=== PATIENT | female | born 1995 | race Caucasian/White ===

== ENCOUNTER 2017-07-25 09:00 | Emergency (ER) | payer OTHER ==
[2017-07-25 09:14] VITALS: BP 132/83; PULSE 83; TEMP 98.2; BMI 29.4
--- NOTE | 2017-07-25 09:39 | PDOC ---
History of Present Illness - General Chief Complaint: Abscess Boil Stated Complaint: LUMP ON BREAST Time Seen by Provider: 07/25/17 09:21 History Source: Patient Exam Limitations: No Limitations - History of Present Illness Initial Comments: 07/25/17 09:46 Patient is a [21-year-old female, denies any significant medical history currently on no medication. Presents for abscess to chest wall, right breast medial border. Not involving breast tissue. No fever, history of abscesses to inner thighs, current one to left inner thigh. No fever, pain 8/10. ] Past Medical History: [Denies]. Allergies: No known allergies Medications: [None] Family History: Non-contributory Social History: Denies smoking, alcohol use, or IVDU Review of Systems GENERAL/CONSTITUTIONAL: [No fever or chills. No weakness. No weight change.] HEAD, EYES, EARS, NOSE AND THROAT: [No change in vision. No ear pain or discharge. No sore throat. ] CARDIOVASCULAR: [No chest pain or shortness of breath.] RESPIRATORY: [No cough, wheezing, or hemoptysis.] GASTROINTESTINAL: [No nausea, vomiting, diarrhea or constipation. No rectal bleeding.] GENITOURINARY: [No dysuria, frequency, or change in urination.] MUSCULOSKELETAL: [No joint or muscle swelling or pain. No neck or back pain.] SKIN : [Palpable painful area, well defined with no fluctuance to midchest, medial border of the right breast. No nipple discharge, no dimpling.] NEUROLOGIC: [No headache, vertigo, loss of consciousness, or loss of sensation.] PSYCHIATRIC: [No depression or anxiety.] ENDOCRINE: [No increased thirst. No abnormal weight change.] HEMATOLOGIC/LYMPHATIC: [No anemia, easy bleeding, or history of blood clots.] ALLERGIC/IMMUNOLOGIC: [No hives or skin allergy. No latex allergy.] Physical Exam: GENERAL: [The patient is awake, alert, and fully oriented, in no acute distress. ] HEAD: [Normal with no signs of trauma.] EYES: [Pupils equal, round and reactive to light, extraocular movements intact, sclera anicteric, conjunctiva clear.] ENT: [Ears normal, nares patent, oropharynx clear without exudates. Moist mucous membranes. No uvula deviation] NECK: [Normal range of motion, supple without lymphadenopathy, JVD, or masses.] LUNGS: [Breath sounds equal, clear to auscultation bilaterally. No wheezes, and no crackles.] HEART: [Regular rate and rhythm, normal S1 and S2 without murmur, rub or gallop. ] BREAST: No dimpling, no nipple discharge, right breast with no palpable mass, there is a raised painful area to medial border of right breast well-defined no fluctuance hard painful to touch. ABDOMEN: [Soft, nontender, normoactive bowel sounds. No guarding, no rebound. No masses. No bruising or abrasions] MUSCULOSKELETAL: [Normal range of motion, no edema. No clubbing or cyanosis. No cords, erythema, or tenderness. No CVA Tenderness with fist.] NEUROLOGICAL: [Cranial nerves II through XII grossly intact. Normal speech, normal gait.] SKIN: [Warm, Dry, normal turgor, no rashes or lesions noted. See above] Past History - Past Medical History Allergies/Adverse Reactions: Allergies Allergy/AdvReac Type Severity Reaction Status Date / Time No Known Allergies Allergy Verified 07/25/17 09:14 Home Medications: Ambulatory Orders Cephalexin Monohydrate [Keflex -] 500 mg PO Q8H #30 capsule 07/25/17 Fluconazole [Diflucan] 150 mg PO ONCE #1 tablet 07/25/17 Oxycodone HCl/Acetaminophen [Percocet 5-325 mg Tablet] 1 tab PO Q4H #20 tablet MDD 6 07/25/17 Sulfamethoxazole/Trimethoprim [Bactrim Ds -] 1 tab PO BID #20 tablet 07/25/17 COPD: No Other medical history: denies - Immunization History Immunization Up to Date: Yes - Suicide/Smoking/Psychosocial Hx Smoking History: Never smoked Have you smoked in the past 12 months: No Hx Alcohol Use: No Drug/Substance Use Hx: No Substance Use Type: None *Physical Exam - Vital Signs Last Vital Signs Temp Pulse Resp BP Pulse Ox 98.2 F 83 20 132/83 99 07/25/17 09:10 07/25/17 09:10 07/25/17 09:10 07/25/17 09:10 07/25/17 09:10 Medical Decision Making - Medical Decision Making 07/25/17 10:05 A/P: Patient here for evaluation of painful mass to medial border of right breast not involving breast tissue. Area where bra meets the chest. Area with no fluctuance, palpable abscess. Also one on her left thigh with no fluctuance I will start patient on antibiotics Bactrim if symptoms do not start to resolve in 2 days, start Keflex return for I&D if symptoms increase. For pain, Diflucan to prevent yeast infection from multiple antibiotics. Follow-up with dermatology. I discussed the physical exam findings, ancillary test results and final diagnoses with the patient. I answered all of the patient's questions. The patient was satisfied with the care received and felt comfortable with the discharge plan and treatment plan. The patient will call to arrange follow-up and will return to the Emergency Department with any new, persisting or worsening symptoms. *DC/Admit/Observation/Transfer Diagnosis at time of Disposition: Abscess of chest wall - Discharge Dispostion Disposition: HOME Condition at time of disposition: Good Admit: No - Prescriptions Prescriptions: Cephalexin Monohydrate [Keflex -] 500 mg PO Q8H #30 capsule Fluconazole [Diflucan] 150 mg PO ONCE #1 tablet Sulfamethoxazole/Trimethoprim [Bactrim Ds -] 1 tab PO BID #20 tablet - Referrals Referrals: Chicho Scott [Non Staff, Medical] - - Patient Instructions Printed Discharge Instructions: DI for Skin Abscess Additional Instructions: Take Diflucan in two days Start Bactrim now, if symptoms start to resolve to not start to take Keflex. Warm soaks to the area. If area becomes larger and not resolving return to the ER for drainage. - Post Discharge Activity Forms/Work/School Notes: Back to Work
== END 2017-07-25 09:57 | disposition home or self-care (01) ==
LOC: JERFT 09:00
DX: L02.213 Cutaneous abscess of chest wall (principal)
CPT/HCPCS: 99281-25

== ENCOUNTER 2017-08-18 22:57 | Emergency (ER) | payer OTHER ==
[2017-08-18 23:06] VITALS: BP 94/64; PULSE 126; BMI 28.3
[2017-08-18] MEDS ORDERED: ACETAMINOPHEN 325 MG TABLET (FP) ONE ×2 (23:27→23:29)
[2017-08-18] MEDS ORDERED: ACETAMINOPHEN 500 MG TABLET (FP) PO ONE (23:32)
--- NOTE | 2017-08-18 23:32 | PDOC ---
History of Present Illness - General History Source: Patient Exam Limitations: No Limitations - History of Present Illness Initial Comments: 08/18/17 23:37 The patient is a 21 year old female with no significant past medical history who presents to the ED with rash and fever since earlier today. The patient was recently seen in the ED 3 weeks ago for an abscess on her left breast and was discharged home with antibiotics (bactrim). The patient states she has been taking the antibiotic as prescribed and noticed a significant reduction in the size of her breast abscess. Patient reports she developed a rash and eye throughout her face after taking bactrim earlier today. She also states she developed a fever of 102 earlier today. Patient reports taking benadryl with no relief of present symptoms. Denies chest pain or shortness of breath. Denies nausea, vomiting or diarrhea. Denies any other symptoms. <Danika Lima - Last Filed: 08/19/17 01:11> <Cyndi Casas - Last Filed: 08/19/17 01:27> - General Chief Complaint: Wound Infection Stated Complaint: FEVER Time Seen by Provider: 08/18/17 23:31 Past History <Danika Lima - Last Filed: 08/19/17 01:11> - Past Medical History COPD: No Other medical history: abscess to chest - Immunization History Immunization Up to Date: Yes - Suicide/Smoking/Psychosocial Hx Smoking History: Never smoked Have you smoked in the past 12 months: No Hx Alcohol Use: No Drug/Substance Use Hx: No Substance Use Type: None <Cyndi Casas - Last Filed: 08/19/17 01:27> - Past Medical History Allergies/Adverse Reactions: Allergies Allergy/AdvReac Type Severity Reaction Status Date / Time No Known Allergies Allergy Verified 07/25/17 09:14 Home Medications: Ambulatory Orders Sulfamethoxazole/Trimethoprim [Bactrim Ds -] 1 tab PO BID #20 tablet 07/25/17 Diphenhydramine [Benadryl -] 50 mg PO ONCE 08/18/17 Cephalexin Monohydrate [Keflex -] 500 mg PO Q6H #20 capsule 08/19/17 Review of Systems - Review of Systems Able to Perform ROS?: Yes Comments:: 08/18/17 23:37 CONSTITUTIONAL: + fever Absent: diaphoresis, generalized weakness, malaise, loss of appetite HEENT: Absent: rhinorrhea, nasal congestion, throat pain, throat swelling, difficulty swallowing, mouth swelling, ear pain, eye pain, visual Changes CARDIOVASCULAR: Absent: chest pain, syncope, palpitations, irregular heart rate, lightheadedness , peripheral edema RESPIRATORY: Absent: cough, shortness of breath, dyspnea with exertion, orthopnea, wheezing, stridor, hemoptysis GASTROINTESTINAL: Absent: abdominal pain, abdominal distension, nausea, vomiting, diarrhea, constipation, melena, hematochezia GENITOURINARY: Absent: dysuria, frequency, urgency, hesitancy, hematuria, flank pain, genital pain MUSCULOSKELETAL: Absent: myalgia, arthralgia, joint swelling SKIN: + rash Absent: itching, pallor HEMATOLOGIC/IMMUNOLOGIC: Absent: easy bleeding, easy bruising, lymphadenopathy, frequent infections ENDOCRINE: Absent: unexplained weight gain, unexplained weight loss, heat intolerance, cold intolerance NEUROLOGIC: Absent: headache, focal weakness or paresthesias, dizziness, unsteady gait, seizure, mental status changes, bladder or bowel incontinence PSYCHIATRIC: Absent: anxiety, depression, suicidal or homicidal ideation, hallucinations. All Other Systems: Reviewed and Negative <Danika Lima - Last Filed: 08/19/17 01:11> *Physical Exam - Vital Signs Last Vital Signs Temp Pulse Resp BP Pulse Ox 102.1 F H 126 H 18 94/64 98 08/18/17 23:26 08/18/17 23:05 08/18/17 23:05 08/18/17 23:05 08/18/17 23:05 - Physical Exam Comments: 08/18/17 23:37 GENERAL: + febrile Awake and alert. No acute distress. HEENT: Normocephalic, atraumatic. PERRLA, EOMI. No conjunctival pallor. Sclera are non- icteric. Moist mucous membranes. Oropharynx is clear. NECK: Supple. Full ROM. No JVD. Carotid pulses 2+ and symmetric, without bruits. No thyromegaly. NCo lymphadenopathy. CARDIOVASCULAR: + Tachycardic, Regular rhythm. No murmurs, rubs, or gallops. Distal pulses are 2+ and symmetric. PULMONARY: No evidence of respiratory distress. Lungs clear to auscultation bilaterally. No wheezing, rales or rhonchi. ABDOMINAL: Soft. Non-tender. Non-distended. No rebound or guarding. No organomegaly. Normoactive bowel sounds. MUSCULOSKELETAL Normal range of motion at all joints. No bony deformities or tenderness. No CVA tenderness. EXTREMITIES: No cyanosis. No clubbing. No edema. No calf tenderness. SKIN: + right breast medial border, there is a linear 2cm hardened ridge with scarring, not fluctuant, non erythematous, non tender. Warm and dry. Normal capillary refill. No rashes. No jaundice. NEUROLOGICAL: Alert, awake, appropriate. Cranial nerves 2-12 intact. No deficits to light touch and temperature in face, upper extremities and lower extremities. No motor deficits in the in face, upper extremities and lower extremities. Normoreflexic in the upper and lower extremities. Normal speech. Toes are down- going bilaterally. Gait is normal without ataxia. PSYCHIATRIC: Cooperative. Good eye contact. Appropriate mood and affect. <Danika Lima - Last Filed: 08/19/17 01:11> - Vital Signs Last Vital Signs Temp Pulse Resp BP Pulse Ox 102.1 F H 126 H 18 94/64 98 08/18/17 23:26 08/18/17 23:05 08/18/17 23:05 08/18/17 23:05 08/18/17 23:05 <Cyndi Casas - Last Filed: 08/19/17 01:27> ED Treatment Course - LABORATORY CBC & Chemistry Diagram: 08/18/17 23:51 08/18/17 23:51 <Danika Lima - Last Filed: 08/19/17 01:11> - LABORATORY CBC & Chemistry Diagram: 08/18/17 23:51 08/18/17 23:51 <Cyndi Casas - Last Filed: 08/19/17 01:27> *DC/Admit/Observation/Transfer - Attestations Scribe Attestion: 08/18/17 23:38 Documentation prepared by Danika Lima, acting as phlebotomist medical lab assistant for Cyndi Casas MD <Danika Lima - Last Filed: 08/19/17 01:11> <Cyndi Casas - Last Filed: 08/19/17 01:27> Diagnosis at time of Disposition: Breast symptom Fever Qualifiers: Fever type: due to other condition Qualified Code(s): R50.81 - Fever presenting with conditions classified elsewhere UTI (urinary tract infection) Qualifiers: Urinary tract infection type: site unspecified Hematuria presence: without hematuria Qualified Code(s): N39.0 - Urinary tract infection, site not specified - Discharge Dispostion Disposition: HOME Condition at time of disposition: Stable - Prescriptions Prescriptions: Cephalexin Monohydrate [Keflex -] 500 mg PO Q6H #20 capsule - Referrals Referrals: Jeremiah Garcia MD [Staff Physician] - - Patient Instructions Printed Discharge Instructions: DI for Urinary Tract Infection (UTI), DI for Fever (Symptom) -- Adult Additional Instructions: 1. please poultry picker your prescription at your pharmacy 2. You need to followup with your regular doctor to have further evaluation of the right breast and possibly imaging of the breast 3. Take tylenol or motrin for fever
[2017-08-18] MEDS ORDERED: SODIUM CHLORIDE 1,000 ML IV STA (23:41)
[2017-08-18 23:55] LABS: URINE APPEARANCE CLEAR; URINE BILIRUBIN NEGATIVE (NEGATIVE); URINE BLOOD NEGATIVE (NEGATIVE); URINE COLOR YELLOW; URINE GLUCOSE (UA) NEGATIVE (NEGATIVE); URINE KETONE NEGATIVE (NEGATIVE); URINE NITRITE NEGATIVE (NEGATIVE); URINE PROTEIN NEGATIVE (NEGATIVE)
[2017-08-18 23:57] LABS: URINE LEUK ESTERASE 1+ (NEGATIVE)
[2017-08-18 23:58] LABS: EPI CELLS RARE /HPF (FEW); URINE BACTERIA RARE /hpf (NONE SEEN); URINE MUCUS MANY
[2017-08-19 00:32] LABS: EOS % 0.8 % (0-4.5); HEMATOCRIT 34.1 % (32.4-45.2); HEMOGLOBIN 11.6 GM/dL (10.7-15.3); LYMPH % 4.3 % (8-40); MCH 25.2 pg (25.7-33.7); MCHC 34.2 g/dl (32.0-36.0); MEAN CELL VOLUME 73.7 fl (80-96); MONO % 5.6 % (3.8-10.2); NEUT % 89.3 % (42.8-82.8); PLATELET COUNT 238 K/MM3 (134-434); RBC 4.62 M/mm3 (3.60-5.2); RDW 15.9 % (11.6-15.6); WHITE BLOOD COUNT 9.3 K/mm3 (4.0-10.0)
[2017-08-19 00:57] LABS: ALBUMIN 3.5 g/dl (3.4-5.0); ANION GAP 9 (8-16); BILIRUBIN,TOTAL 0.8 mg/dL (0.2-1.0); BLOOD UREA NITROGEN 15 mg/dL (7-18); CALCIUM 8.7 mg/dL (8.5-10.1); CHLORIDE 103 mmol/L (98-107); CO2 24 mmol/L (21-32); GLUCOSE,RANDOM 113 mg/dL (74-106); SGOT/AST 12 U/L (15-37); SGPT/ALT 19 U/L (12-78); SODIUM 136 mmol/L (136-145)
[2017-08-19 00:58] LABS: ALK PHOS 41 U/L (45-117); TOT PROT 6.8 g/dl (6.4-8.2)
[2017-08-19] MEDS ORDERED: CEPHALEXIN MONOHYDRATE 500 MG CAPSULE (UD) PO STA (01:07)
[2017-08-19] MEDS ORDERED: FLUCONAZOLE 100 MG TABLET (UD) PO ONE (01:10)
[2017-08-19] MEDS ORDERED: FLUCONAZOLE 100 MG TABLET (UD) ONE (01:12)
[2017-08-19] MEDS ORDERED: CEPHALEXIN MONOHYDRATE 250 MG CAPSULE (FP) ONE (01:12)
[2017-08-19 01:16] VITALS: TEMP 99.9
== END 2017-08-19 01:42 | disposition home or self-care (01) ==
LOC: JER 22:57
PROC: 3E0337Z Introduction of Electrolytic and Water Balance Substance into Peripheral Vein, Percutaneous Approach (ICD-10-PCS; principal; 2017-08-18)
DX: N39.0 Urinary tract infection, site not specified (principal); N64.89 Other specified disorders of breast
CPT/HCPCS: 36415; 80053; 81003; 81015; 84703; 85025; 87804; 96360; 99283-25

== ENCOUNTER 2017-10-26 19:20 | Emergency (ER) | payer OTHER ==
[2017-10-26 19:25] VITALS: BP 133/76; PULSE 97; TEMP 99; BMI 29.9
[2017-10-26 20:30] LABS: BASO % 0.4 % (0-2.0); EOS % 1.5 % (0-4.5); HEMATOCRIT 34.5 % (32.4-45.2); HEMOGLOBIN 12.1 GM/dL (10.7-15.3); LYMPH % 41.8 % (8-40); MCH 26.6 pg (25.7-33.7); MEAN CELL VOLUME 76.1 fl (80-96); MEAN PLT VOLUME 7.8 fl (7.5-11.1); MONO % 12.9 % (3.8-10.2); NEUT % 43.4 % (42.8-82.8); PLATELET COUNT 237 K/MM3 (134-434); RBC 4.54 M/mm3 (3.60-5.2); RDW 18.2 % (11.6-15.6); WHITE BLOOD COUNT 5.9 K/mm3 (4.0-10.0)
[2017-10-26 20:34] LABS: URINE APPEARANCE CLEAR; URINE BILIRUBIN NEGATIVE (<2.0 mg/dL); URINE BLOOD 2+ (NEGATIVE); URINE COLOR YELLOW; URINE GLUCOSE (UA) NEGATIVE (NEGATIVE); URINE KETONE NEGATIVE (NEGATIVE); URINE LEUK ESTERASE NEGATIVE (NEGATIVE); URINE NITRITE NEGATIVE (NEGATIVE); URINE PROTEIN NEGATIVE (NEGATIVE)
--- NOTE | 2017-10-26 20:39 | PDOC ---
History of Present Illness - General Chief Complaint: Vaginal Bleeding Stated Complaint: VAGINAL BLEEDING/9 WKS Time Seen by Provider: 10/26/17 20:26 History Source: Patient Exam Limitations: No Limitations - History of Present Illness Travel History: No Initial Comments: 10/26/17 20:32 Best Contact: Pmhx: N/A Pshx: 2009: Bilateral tympanostomy tube Allergies: NKDA LMP: 08/24/2016 0 21-year-old female presents to the emergency department complaining of scant vaginal bleeding since yesterday and denied any vaginal clots. Patient denies any fever, chills, nausea/vomiting, chest pain, shortness of breath, abdominal discomfort, flank pains, urinary symptoms: Frequency/urgency/hesitancy, hematuria. Patient took 2 home tests 3 weeks ago that were positive. Patient made an appointment to have care for [facility] in [place] but was told she needs preauthorization. Timing/Duration: reports: intermittent Past History - Past Medical History Allergies/Adverse Reactions: Allergies Allergy/AdvReac Type Severity Reaction Status Date / Time No Known Allergies Allergy Verified 10/26/17 19:24 Home Medications: Ambulatory Orders Sulfamethoxazole/Trimethoprim [Bactrim Ds -] 1 tab PO BID #20 tablet 07/25/17 Diphenhydramine [Benadryl -] 50 mg PO ONCE 08/18/17 Cephalexin Monohydrate [Keflex -] 500 mg PO Q6H #20 capsule 08/19/17 COPD: No - Immunization History Immunization Up to Date: Yes - Suicide/Smoking/Psychosocial Hx Smoking History: Never smoked Have you smoked in the past 12 months: No Hx Alcohol Use: No Drug/Substance Use Hx: No Substance Use Type: None Review of Systems - Review of Systems Able to Perform ROS?: Yes Comments:: 10/26/17 20:39 CARDIOVASCULAR: Absent: chest pain, loss of consciousness, palpitations, irregular heart rate, peripheral edema RESPIRATORY: Absent: cough, shortness of breath, dyspnea with exertion, orthopnea, wheezing, stridor, hemoptysis GASTROINTESTINAL: +vag scant bleeding Absent: abdominal pain, abdominal distension, nausea, vomiting, diarrhea, constipation, melena, hematochezia GENITOURINARY: Absent: dysuria, frequency, urgency, hesitancy, hematuria, flank pain, genital pain SKIN: Absent: rash, itching, pallor HEMATOLOGIC/IMMUNOLOGIC: Absent: easy bleeding, easy bruising, lymphadenopathy, frequent infections Is the patient limited [place] proficient: No *Physical Exam - Vital Signs Last Vital Signs Temp Pulse Resp BP Pulse Ox 99 F 97 H 18 133/76 96 10/26/17 19:24 10/26/17 19:24 10/26/17 19:24 10/26/17 19:24 10/26/17 19:24 - Physical Exam Comments: 10/26/17 20:40 GENERAL: Well developed, well nourished. Awake and alert. No acute distress. CARDIOVASCULAR: Regular rate and rhythm. No murmurs, rubs, or gallops. Distal pulses are 2+ and symmetric. PULMONARY: No evidence of respiratory distress. Lungs clear to auscultation bilaterally. No wheezing, rales or rhonchi. ABDOMINAL: Soft. Non-tender. Non-distended. No rebound or guarding. No organomegaly. Normoactive bowel sounds. SKIN: Warm and dry. Normal capillary refill. No rashes. No jaundice. Pelvic: External genitalia normal without lesions. Vaginal vault is clear without blood or discharge. Cervix is long and closed. ED Treatment Course - LABORATORY CBC & Chemistry Diagram: 10/26/17 20:20 10/26/17 20:20 - ADDITIONAL ORDERS Additional order review: 10/26/17 20:20 RBC 4.54 MCV 76.1 L MCHC 35.0 RDW 18.2 H D MPV 7.8 D Neutrophils % 43.4 D Lymphocytes % 41.8 H D Monocytes % 12.9 H D Eosinophils % 1.5 D Basophils % 0.4 D - RADIOLOGY Radiology Studies Ordered: Category Date Time Status TRANSVAGINAL US PREG [US] Stat Ultrasound 10/26/17 20:13 Ordered Radiograph Interpretation: 10/26/17 23:11 Transvaginal ultrasound: Early single intrauterine at 9m weeks 2 days with heart rate of 161 bpm No evidence of ovarian torsion *DC/Admit/Observation/Transfer Diagnosis at time of Disposition: Threatened - Discharge Dispostion Condition at time of disposition: Stable Admit: No - Referrals Referrals: Justa Ford [Primary Care Provider] - Maria Victoria Shannon MD [Staff Physician] - - Patient Instructions Printed Discharge Instructions: DI for Threatened Additional Instructions: As discussed in the emergency department: Pelvic rest Tylenol as needed for pain Follow-up with your price economist within 48 hours You had a transvaginal ultrasound while in the emergency department today and the preliminary results are as follows: Early single intrauterine at 9 weeks and 2 days with a heart rate of 161 bpm You have hormones done in the beta hCG today is: [id number] Return back to the emergency department for severe/persistent/worsening or concerning symptoms Please have your transvaginal ultrasound beta hCG hormones repeated within the week - Post Discharge Activity
[2017-10-26 20:43] LABS: EPI CELLS RARE /HPF (FEW); URINE MUCUS FEW
[2017-10-26 21:02] LABS: ALBUMIN 3.6 g/dl (3.4-5.0); ANION GAP 6 (8-16); BILIRUBIN,TOTAL 0.2 mg/dL (0.2-1.0); BLOOD UREA NITROGEN 14 mg/dL (7-18); CALCIUM 8.8 mg/dL (8.5-10.1); CHLORIDE 108 mmol/L (98-107); CO2 26 mmol/L (21-32); CREATININE 0.7 mg/dL (0.55-1.02); GLUCOSE,RANDOM 81 mg/dL (74-106); SGOT/AST 12 U/L (15-37); SGPT/ALT 26 U/L (12-78); SODIUM 140 mmol/L (136-145); TOT PROT 7.1 g/dl (6.4-8.2)
[2017-10-26 21:20] LABS: ALK PHOS 42 U/L (45-117)
== END 2017-10-26 23:34 | disposition home or self-care (01) ==
LOC: JER 19:20
DX: O26.891 Other specified pregnancy related conditions, first trimester (principal); O20.0 Threatened abortion; Z3A.09 9 weeks gestation of pregnancy
CPT/HCPCS: 36415; 76817-TC; 80053; 81003; 81015; 84702; 85025; 86850; 86900; 86901; 99281-25

== ENCOUNTER 2019-03-23 13:08 | Emergency (ER) | payer OTHER ==
[2019-03-23 13:24] VITALS: BP 127/81; PULSE 81; TEMP 98.6; BMI 29.4
--- NOTE | 2019-03-23 13:24 | PDOC ---
Rapid Medical Evaluation Time Seen by Provider: 03/23/19 13:21 Medical Evaluation: Allergies Allergy/AdvReac Type Severity Reaction Status Date / Time No Known Allergies Allergy Verified 10/26/17 19:24 03/23/19 13:22 Patient had brief in-person examination in triage cc: abscess under right breast since Saturday no fever or chills HPI: alert and oriented x 3 small lesion under right breast medial side, small amount of erythema orders: urine This patient will proceed to ed for further evaluation Discharge Disposition - Diagnosis Abscess of chest wall - Referrals - Patient Instructions - Post Discharge Activity
--- NOTE | 2019-03-23 13:54 | PDOC ---
History of Present Illness - General Chief Complaint: Rash Stated Complaint: CHEST RASH Time Seen by Provider: 03/23/19 13:21 History Source: Patient, Parent(s) Exam Limitations: No Limitations - History of Present Illness Initial Comments: 03/23/19 13:48 Patient is here with recurrent abscess to her right chest wall at the inferior medial border of her breast. Is not breast tissue. States had same type of abscess last year where antibiotics resolved. Timing/Duration: reports: getting worse Severity: Yes: moderate Location: reports: torso Respiratory Risk Factors: reports: no cause identified Associated Symptoms: reports: denies symptoms Past History - Travel Traveled outside of the country in the last 30 days: No Close contact w/someone who was outside of country & ill: No - Past Medical History Allergies/Adverse Reactions: Allergies Allergy/AdvReac Type Severity Reaction Status Date / Time No Known Allergies Allergy Verified 03/23/19 13:24 Home Medications: Ambulatory Orders Sulfamethoxazole/Trimethoprim [Bactrim Ds -] 1 tab PO BID #20 tablet 07/25/17 Diphenhydramine [Benadryl -] 50 mg PO ONCE 08/18/17 Cephalexin Monohydrate [Keflex -] 500 mg PO Q6H #20 capsule 08/19/17 Clindamycin [Cleocin -] 300 mg PO TID #21 capsule 03/23/19 COPD: No - Immunization History Immunization Up to Date: Yes - Suicide/Smoking/Psychosocial Hx Smoking History: Never smoked Have you smoked in the past 12 months: No Information on smoking cessation initiated: No Hx Alcohol Use: No Drug/Substance Use Hx: No Substance Use Type: None Review of Systems - Review of Systems Able to Perform ROS?: Yes Is the patient limited [place] proficient: Yes Constitutional: Yes: Symptoms Reported, See HPI. No: Chills, Fever, Malaise HEENTM: Yes: See HPI. No: Symptoms Reported, Eye Pain Respiratory: Yes: See HPI. No: Symptoms reported, Cough Cardiac (ROS): No: Symptoms Reported Integumentary: Yes: Symptoms Reported, See HPI, Erythema, Lesions, Other ( patient with recurrent mass to right inferior chest wall) Neurological: No: Symptoms reported All Other Systems: Reviewed and Negative *Physical Exam - Vital Signs Last Vital Signs Temp Pulse Resp BP Pulse Ox 98.6 F 81 19 127/81 100 03/23/19 13:22 03/23/19 13:22 03/23/19 13:22 03/23/19 13:22 03/23/19 13:22 - Physical Exam General Appearance: Yes: Nourished, Appropriately Dressed, Apparent Distress, Mild Distress HEENT: positive: ASHLEE, Normal ENT Inspection, TMs Normal, Pharynx Normal Neck: positive: Supple. negative: Lymphadenopathy (R), Lymphadenopathy (L) Respiratory/Chest: positive: Lungs Clear, Other Musculoskeletal: negative: Normal Inspection Extremity: positive: Normal Capillary Refill Integumentary: positive: Normal Color, Warm, Erythema, Swelling (large fluctuant and very tender mass to the inferior medial aspect of right chest wall under breast. It is not involving breast tissue. Wound is pointing) Neurologic: positive: sample box maker II-XII NML intact, Fully Oriented, Alert, Normal Mood/ Affect, Normal Response, Motor Strength 5/5 Procedures - Incision and Drainage I&D Site: Right: Torso (wall abscess approximately) Anesthesia: 1% Lidocaine w/ Epi Blade Size: 11 Complications: none Dressing: Yes Progress Note - Progress Note Progress Note: Wall abscess, we will ultrasound to identify margins and possible incision and drainage *DC/Admit/Observation/Transfer Diagnosis at time of Disposition: Abscess of chest wall - Discharge Dispostion Disposition: HOME Condition at time of disposition: Stable Decision to Admit order: No - Prescriptions Prescriptions: Clindamycin [Cleocin -] 300 mg PO TID #21 capsule - Referrals Referrals: Justa Ford [Primary Care Provider] - - Patient Instructions Printed Discharge Instructions: DI for Skin Abscess Additional Instructions: Rest, keep area elevated. Avoid strenuous activity or exercise until wound is healed Use hot soaks to area to bring more blood to the surface and encourage drainage May change dressings as needed to keep clean - trying to avoid removal of packing for 2 days. If packing needs to be changed, return to emergency department or with your followup physician for wound care and evaluation and repacking as needed If packing needs to be removed, then in 2 days, while in the shower remove dressing and quickly pull the packing taken out. Allow water from shower to wash area thoroughly for 2-3 minutes, and pat dry upon exit of shower and replace dressing. Change his dressing daily until the wound is completely healed. May use Tylenol or Motrin for mild pain relief Use stronger medications as directed and prescribed Continue all medications as prescribed Followup with private physician in 2-3 days for wound check Return to emergency Department for worsening swelling, pain, redness, fevers as needed - Post Discharge Activity Forms/Work/School Notes: Back to Work
[2019-03-23] MEDS ORDERED: ACETAMINOPHEN 500 MG TABLET (FP) PO ONE (13:58)
[2019-03-23] MEDS ORDERED: ACETAMINOPHEN 325 MG TABLET (FP) ONE (13:59)
== END 2019-03-23 15:18 | disposition home or self-care (01) ==
LOC: JERFT 13:08
DX: L02.213 Cutaneous abscess of chest wall (principal)
CPT/HCPCS: 76604; 84703; 87070; 87077; 87205; 99282-25

== ENCOUNTER 2019-07-23 20:18 | Emergency (ER) | payer OTHER ==
[2019-07-23 20:29] VITALS: BP 128/78; PULSE 87; TEMP 98; BMI 30.7
[2019-07-23] MEDS ORDERED: KETOROLAC TROMETHAMINE 60 MG/2 ML VIAL IM ONE (20:29)
[2019-07-23] MEDS ORDERED: CYCLOBENZAPRINE HCL 10 MG TABLET (FP) PO ONE (20:29)
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
[2019-07-23] MEDS ORDERED: KETOROLAC TROMETHAMINE 60 MG/2 ML VIAL ONE (21:52)
[2019-07-23] MEDS ORDERED: CYCLOBENZAPRINE HCL 10 MG TABLET (FP) ONE (21:52)
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
== END 2019-07-23 22:31 | disposition home or self-care (01) ==
LOC: JERFT 20:18
PROC: 3E0233Z Introduction of Anti-inflammatory into Muscle, Percutaneous Approach (ICD-10-PCS; principal; 2019-07-23)
DX: M54.5 Low back pain (principal); V43.62XA Car passenger injured in collision with other type car in traffic accident, initial encounter; Y92.414 Local residential or business street as the place of occurrence of the external cause; Y93.89 Activity, other specified; Y99.8 Other external cause status
CPT/HCPCS: 72050-TC-FY; 99281-25

== ENCOUNTER 2020-11-26 12:54 | Emergency (ER) | payer OTHER ==
[2020-11-26 13:01] VITALS: BP 117/76; PULSE 88; TEMP 97.6; BMI 33.3
[2020-11-26] MEDS ORDERED: morphine CARPU-JECT 4 MG/1 ML DISP.SYRIN IVPUSH ONE ×2 (13:51→14:42)
[2020-11-26] MEDS ORDERED: morphine SULFATE 4 MG/ML VIAL ONE (13:59)
[2020-11-26 14:10] LABS: BASO % 0.5 % (0-2.0); EOS % 1.8 % (0-4.5); HEMATOCRIT 36.1 % (32.4-45.2); HEMOGLOBIN 12.9 GM/dL (10.7-15.3); LYMPH % 25.1 % (8-40); MCHC 35.7 g/dl (32.0-36.0); MEAN CELL VOLUME 78.6 fl (80-96); MEAN PLT VOLUME 8.6 fl (7.5-11.1); MONO % 9.9 % (3.8-10.2); NEUT % 62.7 % (42.8-82.8); PLATELET COUNT 237 K/MM3 (134-434); RDW 14.2 % (11.6-15.6); WHITE BLOOD COUNT 6.1 K/mm3 (4.0-10.0)
[2020-11-26 14:24] LABS: ALBUMIN 3.8 g/dl (3.4-5.0); BLOOD UREA NITROGEN 11.9 mg/dL (7-18); CALCIUM 8.8 mg/dL (8.5-10.1)
[2020-11-26 14:28] LABS: CREATININE 0.7 mg/dL (0.55-1.3)
[2020-11-26 14:29] LABS: BILIRUBIN,TOTAL 0.6 mg/dL (0.2-1); TOT PROT 7.9 g/dl (6.4-8.2)
[2020-11-26] MEDS ORDERED: SODIUM CHLORIDE 0.9% 500 ML INFUS.BAG IV ONE (14:35)
[2020-11-26] MEDS ORDERED: ACETAMINOPHEN 1000 MG/100 ML VIAL (NON FORMULARY) IVPB ONE (14:35)
== END 2020-11-26 19:56 | disposition home or self-care (01) ==
LOC: JER 12:54
PROC: 3E033NZ Introduction of Analgesics, Hypnotics, Sedatives into Peripheral Vein, Percutaneous Approach (ICD-10-PCS; principal; 2020-11-26)
DX: O03.9 Complete or unspecified spontaneous abortion without complication (principal)
CPT/HCPCS: 36415; 76817-TC; 80053; 84702; 85025; 86850; 86900; 86901; 99284-25

== ENCOUNTER 2021-10-13 13:50 | Emergency (ER) | payer OTHER ==
[2021-10-13 14:06] VITALS: BP 119/77; PULSE 95; TEMP 98.4; BMI 34.6
== END 2021-10-13 15:51 | disposition home or self-care (01) ==
LOC: JERFT 13:50
DX: L02.211 Cutaneous abscess of abdominal wall (principal)
CPT/HCPCS: 87070; 87205; 99281-25

== ENCOUNTER 2021-10-15 10:22 | Emergency (ER) | payer OTHER ==
[2021-10-15 10:38] VITALS: BP 110/68; PULSE 82; TEMP 99.3; BMI 34.6
== END 2021-10-15 11:34 | disposition home or self-care (01) ==
LOC: JER 10:22
DX: Z48.00 Encounter for change or removal of nonsurgical wound dressing (principal)
CPT/HCPCS: 99281-25

== ENCOUNTER 2021-10-17 08:54 | Emergency (ER) | payer OTHER ==
[2021-10-17 09:02] VITALS: BP 118/76; PULSE 95; TEMP 98; BMI 34.6
== END 2021-10-17 09:51 | disposition home or self-care (01) ==
LOC: JERFT 08:54
DX: Z48.00 Encounter for change or removal of nonsurgical wound dressing (principal)
CPT/HCPCS: 99281-25

== ENCOUNTER 2021-10-19 08:40 | Emergency (ER) | payer OTHER ==
[2021-10-19 08:46] VITALS: BP 109/60; PULSE 69; TEMP 98.7; BMI 34.6
== END 2021-10-19 10:13 | disposition home or self-care (01) ==
LOC: JERFT 08:40 → JER 08:40 → JERFT 10:13
DX: Z48.00 Encounter for change or removal of nonsurgical wound dressing (principal)
CPT/HCPCS: 99281-25

== ENCOUNTER 2022-08-01 13:02 | Emergency (ER) | payer OTHER ==
[2022-08-01 13:28] VITALS: BP 113/60; PULSE 86; RESP 18; TEMP 97.9; BMI 34.9
== END 2022-08-01 15:15 | disposition home or self-care (01) ==
LOC: JERFT 13:02
DX: L02.213 Cutaneous abscess of chest wall (principal)
CPT/HCPCS: 99283-25